=== PATIENT | male | born 1960 | race Caucasian/White ===

== ENCOUNTER 2024-08-18 10:16 | Emergency (ER) | payer MEDICARE, SELFPAY ==
[2024-08-18 10:27] VITALS: BP 115/85; PULSE 98; RESP 16; TEMP 36.6; O2SAT 97; BMI 25.8
--- NOTE | 2024-08-18 11:37 | PC.NURSE ---
Pt right pinky finer was cut on sharp metal edge of saran wrap box. Pt has been soaking it and taking tylenol but swelling and redness have increased over the past 4+weeks. Hard to bend finger now due to swelling small, intact scab present. Took three tabs of tylenol this morning. Pt also takes warfarin.
[2024-08-18] MEDS: BACITRACIN OINT 0.9 GM PCKT 1 APPLIC TOP (12:09)
--- NOTE | 2024-08-18 12:14 | ED.SKABFB ---
HPI - Skin/Abscess/Foreign Bdy <Jojo Allen PA-C - Last Filed: 08/18/24 12:51> General Chief complaint: Skin/Abscess/Foreign Body Stated complaint: Left hand palacios Time Seen by Provider: 08/18/24 11:35 History of Present Illness HPI narrative: 64-year-old male with an artificial valve replacement, on warfarin presents to the ED with about 4 weeks of right pinky finger wound that has been intermittently purulent, painful, red, swollen. Patient states he can intermittently express some pus from the wound and that he did it this morning. Patient denies fever, chills, chest pain, shortness of breath. No numbness, tingling, weakness. Patient has full range of motion of the finger and hand. Related Data Home Medications ?Medication ?Instructions ?Recorded ?Confirmed warfarin 4 mg tablet 8 mg PO DAILY 07/16/24 08/07/24 Allergies Allergy/AdvReac Type Severity Reaction Status Date / Time No Known Drug Allergies Allergy Verified 08/07/24 08:24 Review of Systems <Jojo Allen PA-C - Last Filed: 08/18/24 12:51> Constitutional Constitutional: Denies chills, Denies fatigue, Denies fever(s), Denies frequent falls, Denies lethargy and Denies weakness Eyes Eyes: Denies change in vision, Denies eye discharge, Denies irritation and Denies loss of vision ENT Ears, Nose, Mouth, and Throat: Denies change in voice, Denies dizziness, Denies neck pain, Denies sore throat and Denies throat swelling Cardiovascular Cardiovascular: Denies chest pain, Denies irregular heart rhythm, Denies lightheadedness, Denies palpitations, Denies dyspnea, Denies dyspnea on exertion and Denies orthopnea Respiratory Respiratory: Denies cough, Denies dyspnea, Denies dyspnea on exertion and Denies wheezing Gastrointestinal Gastrointestinal: Denies abdominal pain, Denies change in bowel habits, Denies diarrhea, Denies nausea and Denies vomiting Musculoskeletal Musculoskeletal: Denies neck pain and Denies numbness Integumentary/Breasts Skin/Breast: Denies pruritus, Denies erythema, Denies rash and Reports wounds Comments: Intermittently purulent wound on right pinky finger with swelling, pain, redness Neurologic Neurologic: Denies behavioral changes, Denies confusion, Denies dizziness, Denies frequent falls, Denies loss of vision, Denies numbness and Denies weakness Psychiatric Psychiatric: Denies anxiety, Denies behavioral changes, Denies confusion, Denies depression, Denies homicidal ideation and Denies suicidal ideation Endocrine Endocrine: Denies fatigue, Denies flushing and Denies palpitations Hematologic/Lymphatic Hematologic/Lymphatic: Denies easy bruising Allergic/Immunologic Allergic/Immunologic: Denies urticaria, Denies throat swelling and Denies wheezing Patient History <Jojo Allen PA-C - Last Filed: 08/18/24 12:51> Social History Smoking Status: Current every day smoker Smoking Status: Current every day smoker tobacco type: cigarettes Alcohol type: beer Exam <Jojo Allen PA-C - Last Filed: 08/18/24 12:51> Narrative Exam Narrative: Const General:?cooperative, healthy appearing and comfortable [facility] Head:?normal to inspection Ears:?hearing grossly normal bilaterally Nose:?external nose normal Face and sinus:?normal facial exam and sinuses nontender Mouth:?oral mucosae normal Throat:?posterior oropharynx normal Eyes General:?appearance normal, both eyes and all related structures Neck Neck:?normal visual inspection and no lymphadenopathy noted Resp Effort & Inspection:?normal respiratory effort Auscultation:?clear to auscultation bilaterally Cardio Rate:?regular rate Rhythm:?regular rhythm Integumentary There is a small wound to the dorsal aspect of the right pinky finger. It is swollen, erythematous, tender to touch. Suspicious for abscess versus cellulitis. Neurovascularly intact. Neuro General:?patient alert, patient awake and patient oriented x3 Initial Vital Signs Initial Vital Signs: Vital Signs Temperature 97.9 F 08/18/24 10:27 Pulse Rate 98 H 08/18/24 10:27 Respiratory Rate 16 08/18/24 10:27 Blood Pressure 115/85 08/18/24 10:27 Pulse Oximetry 97 08/18/24 10:27 Oxygen Delivery Method Room Air 08/18/24 10:27 <Olayinka Meyers MD - Last Filed: 08/25/24 07:09> Initial Vital Signs Initial Vital Signs: Vital Signs Temperature 97.9 F 08/18/24 10:27 Pulse Rate 98 H 08/18/24 10:27 Respiratory Rate 16 08/18/24 10:27 Blood Pressure 115/85 08/18/24 10:27 Pulse Oximetry 97 08/18/24 10:27 Oxygen Delivery Method Room Air 08/18/24 10:27 Course <Jojo Allen PA-C - Last Filed: 08/18/24 12:51> Orders Ordered: Discontinued Medications Bacitracin (Bacitracin Oint 0.9 Gm Pckt) 1 applic TOP NOW ONE Stop: 08/18/24 12:04 Last Admin: 08/18/24 12:09 Dose: 1 applic Documented By: ANNABELLE Vital Signs Vital signs: Vital Signs - 8 hr 08/18/24 10:27 Temperature 97.9 F Pulse Rate 98 H Respiratory Rate 16 Blood Pressure 115/85 Pulse Oximetry 97 Oxygen Delivery Method Room Air <Olayinka Meyers MD - Last Filed: 08/25/24 07:09> Orders Ordered: Discontinued Medications Bacitracin (Bacitracin Oint 0.9 Gm Pckt) 1 applic TOP NOW ONE Stop: 08/18/24 12:04 Last Admin: 08/18/24 12:09 Dose: 1 applic Documented By: ANNABELLE Vital Signs Vital signs: Vital Signs - 8 hr 08/18/24 10:27 Temperature 97.9 F Pulse Rate 98 H Respiratory Rate 16 Blood Pressure 115/85 Pulse Oximetry 97 Oxygen Delivery Method Room Air MDM - Skin/Abscess/Foreign Bdy <Jojo Allen PA-C - Last Filed: 08/18/24 12:51> MDM Narrative Medical decision making narrative: 64-year-old male with an artificial valve replacement, on warfarin presents to the ED with about 4 weeks of right pinky finger wound that has been intermittently purulent, painful, red, swollen. Concern for abscess versus cellulitis. Wound was de roofed with a 18 gauge needle, drained a few drops of blood but no purulence noted. Specimen sent for wound culture. Antibiotics prescribed. Wound care discussed with patient. Recommend follow-up with PCP. ED return precautions discussed with patient. Patient verbalized understanding. Medical records reviewed: Yes Discharge Plan Departure Patient Disposition: Home Clinical Impression: Wound cellulitis Instructions: DI for Wound Infection Activity Restrictions/Additional Instructions: You were evaluated in the ED today for a wound on your right pinky finger. You are being prescribed antibiotics for an infection from the wound. Please refrain from soaking the wound. You may apply Vaseline or bacitracin to the wound to keep it moist but not wet. Please follow-up with your PCP as soon as possible. Return to the ED if you have worsening symptoms. Prescriptions: No Action warfarin 4 mg tablet 8 mg PO DAILY Stand Alone Forms: Patient Portal/API ED Sign-out <Olayinka Meyers MD - Last Filed: 08/25/24 07:09> Cosign ED Attending Cosignature Attestation: I was immediately available in the department for consultation. ?This documentation has been reviewed and I agree with assessment and plan. Supervised by Olayinka Meyers MD
[2024-08-18 12:17] VITALS: BP 146/80; PULSE 88; RESP 16; TEMP 36.7; O2SAT 95
== END 2024-08-18 12:18 | disposition home or self-care (01) ==
PROVIDERS: Emergency Provider Student in an Organized Health Care Education/Training Program
DX: L03.011 Cellulitis of right finger (principal)
CPT/HCPCS: 87070; 87205; 99282